=== PATIENT | male | born 1980 | race American Indian/Alaskan Native ===

== ENCOUNTER 2016-12-18 01:50 | Inpatient (IN) | payer MEDICAID, OTHER ==
[2016-12-18 02:32] LABS: BASO # 0.1 K/uL (0.0-0.2); BASO % 0.7 % (0.0-2.0); EOS # 0.9 K/uL (0.0-0.7); EOS % 5.6 % (0.0-4.0); HEMATOCRIT 42.5 % (35.0-51.0); LYMPH # 5.1 K/uL (1.0-4.3); LYMPH % 32.6 % (20.0-40.0); MEAN CELL VOLUME 93.7 fL (80.0-94.0); MEAN CORPUSCULAR HEMOGLOBIN 32.1 pg (27.0-31.0); MEAN CORPUSCULAR HGB CONC 34.2 g/dL (33.0-37.0); MEAN PLATELET VOLUME 8.7 fL (7.2-11.7); MONO # 1.2 K/uL (0.0-0.8); MONO % 7.6 % (0.0-10.0); NRBC % 0.1 % (0.0-2.0); WHITE BLOOD COUNT 15.5 K/uL (4.8-10.8)
[2016-12-18 02:34] LABS: URINE BILIRUBIN NEGATIVE (NEGATIVE); URINE BLOOD NEGATIVE (NEGATIVE); URINE COLOR Yellow (YELLOW); URINE GLUCOSE (UA) NORMAL (Normal); URINE KETONE NEGATIVE (NEGATIVE); URINE PROTEIN NEGATIVE (NEGATIVE); URINE UROBILINOGEN NORMAL mg/dL (0.2-1.0)
[2016-12-18 02:35] LABS: URINE LEUKOCYTE ESTERASE NEG Leu/uL (Negative); WBC URINE < 1 /hpf (0-5)
[2016-12-18 02:40] LABS: CHLORIDE 100 mmol/L (98-107)
[2016-12-18 02:41] LABS: POTASSIUM 3.8 mmol/L (3.6-5.2); SODIUM 135 mmol/L (132-148)
[2016-12-18 02:43] LABS: ALB/GLOB RATIO 1.3 (1.0-2.1); ALKALINE PHOSPHATASE 61 U/L (38-126); AST/SGOT 29 U/L (17-59); BILIRUBIN,TOTAL 0.6 mg/dL (0.2-1.3); BLOOD UREA NITROGEN 9 mg/dL (9-20); CARBON DIOXIDE 27 mmol/L (22-30); GFR AFRICAN-AMERICAN > 60; TOTAL PROTEIN 7.5 g/dL (6.3-8.3)
[2016-12-18 02:44] LABS: ALCOHOL SERUM < 10 mg/dl (0-10); ALT/SGPT 55 U/L (21-72); CALCIUM 9.3 mg/dl (8.6-10.4); GLUCOSE,RANDOM 75 mg/dL (75-110)
--- NOTE | 2016-12-18 04:24 | C.PDOC ---
History Of Present Illness 36 year old male who presents to the ER with a complaint of hearing voices and feeling increasingly anxious. Patient reports he has been noncomplaint with his psych medication and is requesting a psychiatric evaluation. Denies suicidal ideation or homicidal ideation. Time Seen by Provider: 12/18/16 02:01 Chief Complaint (Nursing): Psychiatric Evaluation History Per: Patient History/Exam Limitations: no limitations Onset/Duration Of Symptoms: Days Current Symptoms Are (Timing): Still Present Suicide/Self Injury Attempted (Context): None Modifying Factor(s): None Severity: None Pain Scale Rating Of: 0 Associated Symptoms: Anxiety, Paranoia. denies: Depression, Suicidal Thoughts, Suicidal Plan Involuntary Hold By: None Recent travel outside of the [place]: No Past Medical History Reviewed: Historical Data, Nursing Documentation, Vital Signs Vital Signs: Last Vital Signs Temp 97.4 F L 12/18/16 04:04 Pulse 88 12/18/16 04:04 Resp 18 12/18/16 04:04 BP 106/74 12/18/16 04:04 Pulse Ox 99 12/18/16 04:29 - Medical History PMH: Schizophrenia Surgical History: No Surg Hx Family History: States: Unknown Family Hx - Social History Hx Alcohol Use: No Hx Substance Use: No - Immunization History Hx Tetanus Toxoid Vaccination: No Hx Influenza Vaccination: No Hx Pneumococcal Vaccination: No Review Of Systems Constitutional: Negative for: Fever, Chills Gastrointestinal: Negative for: Nausea, Vomiting, Diarrhea Psych: Positive for: Anxiety, Other (Hearing voices). Negative for: Suicidal ideation Physical Exam - Physical Exam Appears: Non-toxic, No Acute Distress Skin: Normal Color, Warm, Dry Head: Atraumatic, Normacephalic Chest: Symmetrical Cardiovascular: Rhythm Regular Respiratory: Normal Breath Sounds Neurological/Psych: Oriented x3, Normal Speech, Normal Cognition ED Course And Treatment - Laboratory Results Result Diagrams: 12/18/16 02:27 12/18/16 02:27 O2 Sat by Pulse Oximetry: 99 (Room air) Pulse Ox Interpretation: Normal Progress Note: Blood work and urinalysis ordered. Crisis notified. As per crisis counselor Lamberto, pt reports being suicidal. 1:1 observation ordered. Pt is medically cleared for psychiatric admission. Pt is accepted for psychiatric admission by Dr Valdez Disposition - Disposition Disposition: HOSPITALIZED Disposition Time: 04:39 Condition: STABLE - Clinical Impression Clinical Impression: Schizoaffective disorder, Opiate use - Scribe Statement The provider has reviewed the documentation as recorded by the Scribben Phillip All medical record entries made by the Kvngibe were at my direction and personally dictated by me. I have reviewed the chart and agree that the record accurately reflects my personal performance of the history, physical exam, medical decision making, and the department course for this patient. I have also personally directed, reviewed, and agree with the discharge instructions and disposition.
--- NOTE | 2016-12-18 04:33 | PCM.BM ---
<QamarKaty - Last Filed: 12/18/16 04:30> Treatment Plan Problems - Problems identified on initial assessmt Depression Date Initiated: 12/18/16 Time Initiated: 04:30 Assessment reference: NA Status: Active opiate abuse Date Initiated: 12/18/16 Time Initiated: 04:30 Assessment reference: NA Status: Active Treatment assets and liabiliti Patient Assests: cooperative, ADL independent Patient Liabilities: live alone, substance abuse - Milieu Protocol Maintain good personal hygiene: daily Encourage regular showers, daily Remind patient to perform daily oral care, daily Assist patient to perform ADL's Conduct patient checks and document Observation sheet: Q15 minutes Maintain personal safety: every shift Educate patient to report safety concerns to staff, every shift Monitor environment for contraband/sharps Medication safety: Monitor for expected outcome, potential side effects: every shift, Assess barriers to learning: every shift, Assess readiness for medication education: every shift <Ophelia Irizarry - Last Filed: 12/18/16 11:18> Family Contact Family involvement: Family/SO is involved Family contact: Patient agrees to contact Family contact name: Millicent Rodgers-aunt - Goals for Treatment Patient goals for treatment: "I don't know." Discharge/Continuing Care - Education Needs Education Needs: Patient Medication, Patient Coping Skills, Patient Placement options, Patient Community resources - Discharge Discharge Criteria: Tolerates medication w/o severe side effects, No longer exhibiting s/s of withdrawal, Reduction of target symptoms Discharge to:: Home - Treatment Team Participation Discussed with Family/SO: Yes Was Patient/Family/SO present at Treatment Team Meeting: Yes <Tucker Guthrie - Last Filed: 12/18/16 16:49> - Diagnosis (1) Bipolar 1 disorder, depressed Status: Acute Interventions: Assess/at just medications daily and/or as needed See patient on and individual [id number] per week to assess status of hallucinations and delusions Discussed risks, benefits, side effects and alternatives of medications. 12/18/16 16:48 (2) Opiate dependence Status: Acute Interventions: Assess 7x/week regarding severity of withdrawal Educated regarding risks, benefits, side effects and alternatives of medications Used motivational interview for abstinence Used CBT for relapse prevention Medication management for withdrawal symptoms Encouraged medication assisted treatment 12/18/16 16:49 (3) Cannabis use disorder, mild, abuse Status: Acute Interventions: Assess 7x/week regarding severity of withdrawal Educated regarding risks, benefits, side effects and alternatives of medications Used motivational interview for abstinence Used CBT for relapse prevention Medication management for withdrawal symptoms Encouraged medication assisted treatment 12/18/16 16:49
[2016-12-18] MEDS ORDERED: Pneumococcal 23-Valent Vaccine IM ONE (05:01)
[2016-12-18] MEDS ORDERED: Influenza Vaccine 60 mcg/0.5 mL SYR (4YR UP) IM ONE (05:43)
--- NOTE | 2016-12-18 09:44 | PCM.BM ---
Treatment Plan Problems - Problems identified on initial assessmt Depression Date Initiated: 12/18/16 Time Initiated: 04:30 Assessment reference: NA Status: Active opiate abuse Date Initiated: 12/18/16 Time Initiated: :30 Assessment reference: NA Status: Active Treatment assets and liabiliti Patient Assests: cooperative, ADL independent Patient Liabilities: live alone, substance abuse - Milieu Protocol Maintain good personal hygiene: daily Encourage regular showers, daily Remind patient to perform daily oral care, daily Assist patient to perform ADL's Conduct patient checks and document Observation sheet: Q15 minutes Maintain personal safety: every shift Educate patient to report safety concerns to staff, every shift Monitor environment for contraband/sharps Medication safety: Monitor for expected outcome, potential side effects: every shift, Assess barriers to learning: every shift, Assess readiness for medication education: every shift Treatment Plan Review Patient participation: Yes Family/SO/Caregiver participation: No - Problem Depression Time Initiated: :30 opiate abuse Time Initiated: 30
--- NOTE | 2016-12-18 15:47 | RAD ---
HISTORY: elaveted wbc, cough COMPARISON: No prior. TECHNIQUE: Chest PA and lateral FINDINGS: LUNGS: No active pulmonary disease. PLEURA: No significant pleural effusion identified. No pneumothorax apparent. CARDIOVASCULAR: Normal. OSSEOUS STRUCTURES: No significant abnormalities. VISUALIZED UPPER ABDOMEN: Normal. OTHER FINDINGS: None. IMPRESSION: No active disease.
--- NOTE | 2016-12-18 16:42 | PCM.PSYCH ---
Initial Psychiatric Evaluation - Initial Psychiatric Evaluation Type of Admission: Voluntary Legal Status: Capacity Chief Complaint (in patient's own words): I have issues with my treatment. History of Present Illness and Precipitating Events: patient is a 36 years old, single,unemployed for last 2 years, [place]er male with history of bipolar disorder diagnosed 6 years ago, noncompliant with treatment was admitted due to worsening of symptoms in substance use. Patient reported that he was following up at [facility], outpatient until one month ago and was getting medications including Seroquel and Neurontin, noncompliant for last few days. Reported feeling depressed with decreased sleep, feels tired, decreased energy, decreased appetite but no weight change. Had suicidal ideations at times, last had one week ago without any plan. History of one previous suicidal attempt by overdose a few months ago and was admitted at [facility]. History of more than 5 inpatient psychiatric admissions. Denied any psychotic, manic or anxiety symptoms. Reported history of cocaine use. Last use was more than 10 years ago. Cannabis use,last use reported one month ago. Denied use of any other drugs. His urine drug screen was positive for opiates and cannabis. Patient was guarded about substance use including cannabis and opiates. Smokes 5-6 cigarettes daily. Refused to get nicotine patch. Patient was born in [facility], migrated [facility] with family at 5 years of age. he has high school graduation, not working for last 2 years, lives with family and is supported by family. Never and has no children. His height is 5 feet 11 inches and weight is 158 pounds. Current Medications: Active Medications Generic Name Dose Route Start Last Admin Trade Name Freq PRN Reason Stop Dose Admin Haloperidol 5 mg 12/18/16 18:00 Haldol PO Q6 GERALD Hydroxyzine HCl 50 mg 12/18/16 08:53 Atarax PO Q6H PRN Anxiety Ibuprofen 600 mg 12/18/16 08:53 Motrin Tab PO Q6H PRN Pain, moderate (4-7) Mirtazapine 15 mg 12/18/16 22:00 Remeron PO HS GERALD Trazodone HCl 100 mg 12/18/16 08:53 Desyrel PO HS PRN Insomnia Past Psychiatric History - Past Psychiatric History Previous Treatment History: Intensive Outpatient At what hospital: [facility] History of Abuse: none reported History of ETOH/Drug Use: See HPI History of Family Illness: none reported Pertinent Medical Hx (Current Medical&Sleep Prob, Allergies): Allergies Allergy/AdvReac Type Severity Reaction Status Date / Time No Known Allergies Allergy Unverified 12/18/16 02:05 No Known Home Med 12/18/16 Review of Systems - Psychiatric Psychiatric: Depression Mental Status Examination - Personal Presentation Personal Presentation: Looks stated age - Affect Affect: Depressed - Motor Activity Motor Activity: Calm - Reliability in Providing Information Reliability in Providing Information: Fair - Speech Speech: Relevant - Mood Mood: Depressed - Formal Thought Process Formal Thought Process: No Impairment - Hallucinations/Delusions Hallucinations: Other (none reported) Delusions: Other - Obsessions/Compulsions Obsessions: None Compulsions: None - Cognitive Functions Orientation: Person, Place, Situation, Time Sensorium: Alert Attention/Concentration: Attentive Abstract Thinking: Berthold Estimate of Intelligence: Average Judgement: Intact, as evidence by: Insight regarding need for hospitalization Memory: Recent intact, as evidence by: 3/3 object recall, Remote intact, as evidenced by: Ability to recall historical events - Risk Risk: Diminished functioning - Strength & Assets Inventory Strength & Assets Inventory: Family support, Cooperative - Limitations Limitations: Other DSM 5 DX - DSM 5 DSM 5 Diagnosis: Bipolar 1 disorder most recent episode depressed Opiate use disorder Cannabis use disorder - Recommended/Plan of Treatment Treatment Recommendations and Plan of Treatment: patient education supportive therapy We'll start Seroquel, Neurontin and other when necessary medications. Mortification interview for abstinenc CBT for relapse prevention. Projected ELOS: 8-10 days - Smoking Cessation Smoking Cessation Initiated: No Reason for not providing: patient refused
--- NOTE | 2016-12-19 12:31 | PCM.PYCHPN ---
Psychiatric Progress Note - Psychiatric Progress Note Patient seen today, length of contact: 15 minutes Patient Chief Complaint: I'm feeling little better. Problems Identified/Issues Discussed: Patient seen. Chart reviewed. Case discussed with the staff. Issues related to illness and treatment were discussed with the patient. Reported compliant with treatment with no adverse affects. Patient denied use of any opiates or any recent cannabis use. Staff reported that patient is isolative and comes out of his room only for food and medication. Encouraged patient to attend groups and other activities on the unit. Patient agreed. At the time of evaluation, patient was awake alert oriented 3, had no delusions , no auditory or visual hallucinations, no suicidal ideations or homicidal ideations. Medical Problems: None reported Diagnostic Results: Reviewed DSM 5 Symptoms Update: Some improvement with treatment Medication Change: No Medical Record Reviewed: Yes Mental Status Examination - Cognitive Function Orientation: Person, Place, Situation, Time Memory: Intact Attention: WNL Concentration: WNL Association: WNL Fund of Knowledge: [facility] Decription of patient's judgement and insights: Fair - Mood Mood: Depressed - Affect Affect: Depressed - Speech Speech: Appropriate - Formal Thought Process Formal Thought Process: No Impairment Psychotic Thoughts and Behaviors: None - Suicidal Ideation Suicidal Ideation: No - Homicidal Ideation Homicidal Ideation: No Goal/Treatment Plan - Goal/Treatment Plan Need for Continued Stay: Remain at risks for inpatient hospitalization, Discharge may exacerbated symptoms, Severe functional impairment Progress Toward Problem(s) and Goals/Treatment Plan: patient education supportive therapy Continue treatment as before Estimated Date of D/C: 12/25/16 - Smoking Cessation Smoking Cessation Initiated: No Reason for not providing: Patient doesn't smoke cigarettes
--- NOTE | 2016-12-20 13:43 | PCM.PYCHPN ---
Psychiatric Progress Note - Psychiatric Progress Note Patient seen today, length of contact: 15 minutes Patient Chief Complaint: I'm feeling better. Problems Identified/Issues Discussed: Patient seen. Chart reviewed. Case discussed with the staff. Issues related to illness and treatment were discussed with the patient. Reported compliant with treatment with no adverse affects. Patient reported feeling better with the treatment. Also reported attending groups for few minutes. Staff reported that patient is isolative and comes out of his room only for food and medication. Encouraged patient to attend groups and other activities on the unit. Patient agreed. At the time of evaluation, patient was awake alert oriented 3, had no delusions , no auditory or visual hallucinations, no suicidal ideations or homicidal ideations. Medical Problems: None reported Diagnostic Results: Reviewed DSM 5 Symptoms Update: Improving with treatment Medication Change: No Medical Record Reviewed: Yes Mental Status Examination - Cognitive Function Orientation: Person, Place, Situation, Time Memory: Intact Attention: WNL Concentration: WNL Association: WNL Fund of Knowledge: WNL Decription of patient's judgement and insights: Fair - Mood Mood: Depressed (Less than before) - Affect Affect: Depressed - Speech Speech: Appropriate - Formal Thought Process Formal Thought Process: No Impairment Psychotic Thoughts and Behaviors: None - Suicidal Ideation Suicidal Ideation: No - Homicidal Ideation Homicidal Ideation: No Goal/Treatment Plan - Goal/Treatment Plan Need for Continued Stay: Remain at risks for inpatient hospitalization, Discharge may exacerbated symptoms, Severe functional impairment Progress Toward Problem(s) and Goals/Treatment Plan: patient education supportive therapy Continue treatment as before Estimated Date of D/C: 12/25/16 - Smoking Cessation Smoking Cessation Initiated: No
--- NOTE | 2016-12-21 14:26 | PCM.PYCHPN ---
Psychiatric Progress Note - Psychiatric Progress Note Patient seen today, length of contact: 16 mins Patient Chief Complaint: "I doing alright doctor, thank you". Problems Identified/Issues Discussed: The pt is seen, chart reviewed, case discussed with staff. Pt reports she is sleeping well throughout the night and has no problems with sleep. He reports that compared to last week he is feeling better. Pt reports no problems with current medication regimen. The pt is compliant with medications and reports no side-effects. Symptoms are improving but needs more time to stabilize. After care discussed, support and psychoeducation given. Pt plans on speaking with SW in order to find a fdc where he can live while he resolves his Social Security income, in order to later on look for a place where he can live. Pt is encouraged to speak with SW and counselors that can help with find available resources. Medication Change: No Medical Record Reviewed: Yes Mental Status Examination - Cognitive Function Orientation: Person, Place, Situation, Time Memory: Intact Attention: WNL Concentration: WNL Association: WN Fund of Knowledge: WNL - Mood Mood: Neutral - Affect Affect: Constricted - Speech Speech: Appropriate - Formal Thought Process Formal Thought Process: No Impairment - Suicidal Ideation Suicidal Ideation: No - Homicidal Ideation Homicidal Ideation: No Goal/Treatment Plan - Goal/Treatment Plan Need for Continued Stay: Remain at risks for inpatient hospitalization, Discharge may exacerbated symptoms Progress Toward Problem(s) and Goals/Treatment Plan: Continue all other medications as needed. Attend groups and activities Individual therapy Psychoeducation and support Encourage compliance with meds and after care Refer to outpatient program Teach healthy lifestyle methods, i.e. diet, exercise, meditation Smoking cessation 16 mins Estimated Date of D/C: 12/25/16
[2016-12-22 07:49] VITALS: BP 102/67; PULSE 75; RESP 20; TEMP 97.6; O2SAT 95
[2016-12-22] MEDS ORDERED: Divalproex 500 mg DR Tab PO SCH (10:00)
--- NOTE | 2016-12-22 10:16 | PCM.PYCHDC ---
Mental Status Examination - Mental Status Examination Orientation: Person, Place, Situation, Time Memory: Intact Mood: Neutral Affect: Constricted Speech: Soft Attention: WNL Concentration: WNL Association: WNL Fund of Knowledge: WNL Formal Thought Process: No Impairment Description of patient's judgement and insight: good, fair Psychotic Thoughts and Behaviors: denies any AVH Suicidal Ideation: No Current Homicidal Ideation?: No Discharge Summary - Discharge Note Reason for Hospitalization: patient is a 36 years old, single,unemployed for last 2 years, [place] male with history of bipolar disorder diagnosed 6 years ago, noncompliant with treatment was admitted due to worsening of symptoms in substance use. Patient reported that he was following up at [facility], outpatient until one month ago and was getting medications including Seroquel and Neurontin, noncompliant for last few days. Reported feeling depressed with decreased sleep, feels tired, decreased energy, decreased appetite but no weight change. Had suicidal ideations at times, last had one week ago without any plan. History of one previous suicidal attempt by overdose a few months ago and was admitted at [facility]. History of more than 5 inpatient psychiatric admissions. Denied any psychotic, manic or anxiety symptoms. Reported history of cocaine use. Last use was more than 10 years ago. Cannabis use,last use reported one month ago. Denied use of any other drugs. His urine drug screen was positive for opiates and cannabis. Patient was guarded about substance use including cannabis and opiates. Smokes 5-6 cigarettes daily. Refused to get nicotine patch. Patient was born in [facility] with family at 5 years of age. he has high school graduation, not working for last 2 years, lives with family and is supported by family. Never and has no children. His height is 5 feet 11 inches and weight is 158 pounds. Consultations:: List each consultation separately and include: 1. Reason for request. 2. Findings. 3. Follow-up Summary of Hospital Course include:: 1. Description of specific treatment plan utilized for patients during their course of treatmen. 2. Summarize the time- course for resolution of acute symptoms and/or regressed behaviors. 3. Describe issues identified and worked on during hospitalization. 4. Describe medication utilized. 5. Describe medical problems identified and treated. 6. Reassessment of suicide risk - Final Diagnosis (DSM 5) Condition upon Discharge: STABLE DSM 5: Bipolar 1 disorder most recent episode depressed Opiate use disorder Cannabis use disorder Disposition: HOME/ ROUTINE Follow-up Treatment Plan: Continue all other medications as needed. Attend groups and activities Individual therapy Psychoeducation and support Encourage compliance with meds and after care Refer to outpatient program Teach healthy lifestyle methods, i.e. diet, exercise, meditation Smoking cessation 16 mins Prescriptions/Medication Reconciliation: Benztropine [Cogentin] 1 mg PO BID 14 Days tab Divalproex [Depakote DR] 500 mg PO BID 14 Days tcp Haloperidol [Haldol] 10 mg PO BID 14 Days tab QUEtiapine [Seroquel] 100 mg PO HS #14 tab traZODone [Desyrel] 100 mg PO HS PRN #14 tab PRN Reason: Insomnia - Smoking Cessation Smoking Cessation Medication prescribed: No - Antipsychotic Medications Pt discharged on 2 or more routine antipsychotic medications: No
== END 2016-12-22 10:31 | disposition home or self-care (01) | DRG 885 ==
LOC: C.ER 01:50 → C.5E 03:54
PROVIDERS: ADMIT Psychiatry & Neurology Psychiatry; ATTEND Psychiatry & Neurology Psychiatry
PROC: HZ52ZZZ Individual Psychotherapy for Substance Abuse Treatment, Cognitive-Behavioral (ICD-10-PCS; principal; 2016-12-18)
PROC: HZ56ZZZ Individual Psychotherapy for Substance Abuse Treatment, Psychoeducation (ICD-10-PCS; 2016-12-18)
DX: F31.30 Bipolar disorder, current episode depressed, mild or moderate severity, unspecified (principal); F11.20 Opioid dependence, uncomplicated; R45.851 Suicidal ideations; F12.10 Cannabis abuse, uncomplicated; F17.210 Nicotine dependence, cigarettes, uncomplicated; Z91.19 Patient's noncompliance with other medical treatment and regimen; Z91.5 Personal history of self-harm